=== PATIENT | male | born 2000 | race Caucasian/White ===

== ENCOUNTER 2022-08-20 00:01 | Emergency (ER) | payer OTHER, SELFPAY ==
[2022-08-20 00:16] VITALS: BP 126/87; PULSE 70; RESP 16; TEMP 37.4; O2SAT 100
--- NOTE | 2022-08-20 01:55 | ED.ALLEREA ---
HPI - Allergic Reaction General Chief complaint: Allergic Reaction Stated complaint: rash diffuse Time Seen by Provider: 08/20/22 00:48 Source: patient Mode of arrival: ambulatory Limitations: no limitations History of Present Illness HPI narrative: 21-year-old male presents today with complaints of a rash that he noted yesterday. Patient was seen in urgent care this morning and was told that the rash was due to tinea versicolor. Patient. The rash has worsened and he presented here. Patient denies any new soaps, lotions, detergents but is currently on amoxicillin for strep. Patient states about 3 weeks ago he was on penicillin for strep without issue. After thinking about it he did note that the rash is worse about 2 hours after taking the amoxicillin. Related Data Allergies Allergy/AdvReac Type Severity Reaction Status Date / Time No Known Allergies Allergy Verified 08/20/22 00:24 Review of Systems Review of Systems: CONSTITUTIONAL: Denies fever, chills, or sweats. EYES: Denies visual changes, redness, or discharge. ENT: Denies rhinorrhea, congestion, sore throat, or otalgia. CARDIOVASCULAR: Denies chest pain, palpitations, or edema. RESPIRATORY: Denies cough or dyspnea. GASTROINTESTINAL: Denies abdominal pain, nausea, vomiting, or diarrhea. GENITOURINARY: Denies dysuria or hematuria. SKIN: Rash. Denies itching. Exam Narrative: GENERAL: Well-appearing, well-nourished, and in no acute distress. HEAD: Normocephalic, atraumatic. EYES: PERRLA and EOMI. ENT: Nares clear, no rhinorrhea or epistaxis. Mucous membranes moist. Oropharynx without tonsillar hypertrophy exudate or other lesions. NECK: Supple. No adenopathy or masses. No carotid bruits or JVD CHEST: Clear to auscultation. No respiratory distress. No wheezes rales or rhonchi HEART: Regular rate and rhythm. No murmur heard. Normal peripheral pulses. ABDOMEN: Soft, nontender, nondistended, normal active bowel sounds. EXTREMITIES: Normal range of motion. No edema. SKIN: Warm, dry. Macular rash noted to 8 to entire body. Pruritic. NEURO: No focal deficits. Alert and oriented x3. PSYCH: Normal mood and affect. Course Reevaluation(s) Reevaluation #1: Patient with improvement with itching. Rash to wrist appears less red. Date: 08/20/22 Time: 03:30 Vital Signs Vital signs: Vital Signs Temperature 99.3 F 08/20/22 00:16 Pulse Rate 70 08/20/22 00:16 Respiratory Rate 16 08/20/22 00:16 Blood Pressure 126/87 08/20/22 00:16 Pulse Oximetry 100 08/20/22 00:16 Oxygen Delivery Room Air 08/20/22 00:16 Temperature 99.3 F 08/20/22 00:16 Pulse Rate 70 08/20/22 00:16 Respiratory Rate 16 08/20/22 00:16 Blood Pressure 126/87 08/20/22 00:16 Pulse Oximetry 100 08/20/22 00:16 Oxygen Delivery Room Air 08/20/22 00:16 MDM - Allergic Reaction MDM Narrative Medical decision making narrative: [id number] male HPI as noted. Differentials noted below. Patient recently on penicillin without any issue and has been put on amoxicillin. Patient is on day 8-09/16 of amoxicillin and noted a rash yesterday. After thinking about it rash noted to be worse about 2 hours after amoxicillin dose yesterday and today. Improvement noted after medications. Will discharge home. Patient instructed to stop amoxicillin. He has a follow-up appointment on Friday with primary. Differential Diagnosis Differential diagnosis: Likely allergic reaction, contact dermatitis, adverse reaction to drug, viral enanthem and urticaria Discharge Plan Discharge Clinical Impression: Allergic reaction Patient Disposition: Home, Self-Care Condition: Improved Instructions: Antibiotic Form, Acute Rash (ED), General Allergic Reaction (ED) Additional Instructions: Stop the amoxicillin. Take prescriptions as prescribed. Keep your follow-up appointment with your primary Friday. Return with any new or worsening concerns as discussed including shortness
[2022-08-20] MEDS: FAMOTIDINE 20 MG TABLET PO (02:06)
[2022-08-20] MEDS: methylPREDNISolone ACETATE 80 MG/ML VIAL IM (02:14)
[2022-08-20] MEDS: LORATADINE 10 MG TABLET PO (02:18)
[2022-08-20 03:56] VITALS: BP 124/76; PULSE 74; RESP 16; O2SAT 100
== END 2022-08-20 03:37 | disposition home or self-care (01) ==
PROVIDERS: Emergency Provider Nurse Practitioner Family; PCP Family Medicine
DX: T78.40XA Allergy, unspecified, initial encounter (principal)
CPT/HCPCS: 96372; 99283; A9270; J1030; J1040; J2920

== ENCOUNTER 2023-02-09 18:23 | Emergency (ER) | payer OTHER, SELFPAY ==
--- NOTE | ~2023-02-09 | XR_ITS ---
EXAMINATION: XR chest 2V DATE: 02/09/2023 19:01 INDICATION: Shortness of breath TECHNIQUE: PA and lateral views of the chest were obtained. COMPARISON: None FINDINGS: The lungs are clear with no focal airspace opacities, pulmonary edema, pleural effusion or pneumothor ax. The pleural contour at the apices suggests possibility of apical bulla. The cardiomediastinal dejuan houette is normal. Mild pectus excavatum. IMPRESSION: 1. No acute cardiopulmonary disease. Reviewed, dictated and finalized at location A.
[2023-02-09 18:33] VITALS: BP 152/80; PULSE 64; RESP 20; TEMP 36.6; O2SAT 100
--- NOTE | 2023-02-09 18:58 | ED.GENADULT ---
HPI - General Adult General Chief complaint: Unspecified Stated complaint: fatigue Time Seen by Provider: 02/09/23 18:37 History of Present Illness HPI narrative: 22-year-old male here for evaluation of fatigue. Patient states that he has felt fatigued while he is at work. He is feeling sick with upper respiratory infectious symptoms 2 weeks ago including cough, congestion, nasal drainage. The cough has lingered but the other symptoms have improved. Reports some periods where he feels he is gasping for air . Patient denies any fevers, nausea, vomiting, abdominal pain, chest pain, sore throat. No sick contacts. He did take a COVID test at home that was negative when he started to feel unwell. He was referred from an urgent care for labs. Related Data Allergies Allergy/AdvReac Type Severity Reaction Status Date / Time No Known Allergies Allergy Verified 08/20/22 00:24 Review of Systems Review of Systems: Gen.: Denies fevers or chills Eyes: Denies eye pain or visual change ENT: Denies congestion Respiratory: Denies shortness of breath or cough CV: Denies chest pain or palpitations GI: Denies abdominal pain nausea, emesis or diarrhea denies burning, urgency, frequency or hematuria Musculoskeletal: Denies back pain or muscle pain Neuro: Denies numbness, tingling, weakness or focal weakness Skin: Denies rash Except as documented, all other systems reviewed and negative Exam Narrative: APPEARANCE: Well appearing, no pain in distress, well-nourished. Head: Normocephalic and atraumatic. EYES: PERRLA/EOMI, conjunctivae clear NOSE: No nasal drainage EARS: External ear normal in appearance THROAT: Oropharynx is clear. Mucous membranes are moist. NECK: Supple. No adenopathy, no masses. RESPIRATORY: Airway patent, respirations nonlabored. Clear to auscultation bilaterally, no rales, rhonchi, wheezing. CARDIOVASCULAR: Regular rate and rhythm without murmurs, rubs, or gallops. ABDOMINAL: Normoactive bowel sounds. Soft, nontender, nondistended. No rebound tenderness or guarding. MUSCULOSKELETAL: Extremities are warm and well-perfused. Moves all extremities well. No edema. NEURO: Normal speech. No focal neurologic deficits. SKIN: Skin is warm and dry. No rashes. PSYCHIATRIC: Normal affect/mood. Course Vital Signs Vital signs: Vital Signs Temperature 97.8 F 02/09/23 18:33 Pulse Rate 64 02/09/23 18:33 Respiratory Rate 20 02/09/23 18:33 Blood Pressure 152/80 H 02/09/23 18:33 Pulse Oximetry 100 02/09/23 18:33 Oxygen Delivery Room Air 02/09/23 18:33 Temperature 97.8 F 02/09/23 18:33 Pulse Rate 62 02/09/23 20:23 Respiratory Rate 16 02/09/23 20:23 Blood Pressure 133/89 02/09/23 20:23 Pulse Oximetry 100 02/09/23 20:23 Oxygen Delivery Room Air 02/09/23 18:33 Medical Decision Making MDM Narrative Medical decision making narrative: 22-year-old male here for evaluation of fatigue after several days of upper respiratory infectious symptoms last week. He is nontoxic appearance and has normal vital signs, clear breath sounds throughout. Basic labs are unremarkable, chest x-ray is clear, viral swabs are negative. Likely postviral syndrome. No chest pain or fevers to suggest myocarditis. Will send home with PMD follow-up. Vital Signs Vital Signs: Vital Signs Temperature 97.8 F 02/09/23 18:33 Pulse Rate 64 02/09/23 18:33 Respiratory Rate 20 02/09/23 18:33 Blood Pressure 152/80 H 02/09/23 18:33 Pulse Oximetry 100 02/09/23 18:33 Oxygen Delivery Room Air 02/09/23 18:33 Temperature 97.8 F 02/09/23 18:33 Pulse Rate 62 02/09/23 20:23 Respiratory Rate 16 02/09/23 20:23 Blood Pressure 133/89 02/09/23 20:23 Pulse Oximetry 100 02/09/23 20:23 Oxygen Delivery Room Air 02/09/23 18:33 Lab Data 02/09/23 19:23 02/09/23 19:23 Labs: Lab Results 02/09/23 Range/Units 19:23 WBC 6.8 (4.5-10.0) K/mm3
--- NOTE | 2023-02-09 18:59 | PC.NURSE ---
Patient off unit to radiology.
--- NOTE | 2023-02-09 19:08 | PC.NURSE ---
Patient report given to JALYN Hawkins. All questions answered and care of patient transferred.
[2023-02-09 19:30] LABS: Basophils Absolute Auto 0.1 K/mm3 (0.0-0.1); Basophils Percent Auto 0.9 % (0.2-1.2); Eosinophils Absolute Auto 0.1 K/mm3 (0-0.3); Eosinophils Percent Auto 1.2 % (0-4.4); Hematocrit 44.5 % (42.0-52.0); Hemoglobin 15.3 g/dL (14.0-18.0); Immature Granulocyte Absolute 0.02 K/mm3 (0.00-0.031); Immature Granulocyte Percent A 0.3 % (0-0.5); Lymphocytes Absolute Auto 1.89 K/mm3 (0.9-3.2); Lymphocytes Percent Auto 27.8 % (18.3-44.2); Mean Corpuscular HGB Conc 34.4 g/dl (32-36); Mean Corpuscular Hemoglobin 31.4 pg (26-34); Mean Corpuscular Volume 91.4 fl (80-100); Mean Platelet Volume 9.9 fl (7.4-10.4); Monocytes Absolute Auto 0.5 K/mm3 (0.1-0.6); Monocytes Percent Auto 7.6 % (2.6-8.5); Neutrophils Absolute Auto 4.2 K/mm3 (1.3-6.7); Neutrophils Percent Auto 62.2 % (45.5-73.1); Platelet Count Result 214 k/mm3 (150-375); Red Blood Count 4.87 M/mm3 (4.6-6.20); Red Cell Distribution Width 11.9 % (11.5-14.5); White Blood Count 6.8 K/mm3 (4.5-10.0)
[2023-02-09 19:37] LABS: Alanine Aminotransferase 21 U/L (6-50); Albumin Level 4.7 g/dL (3.5-5.1); Alkaline Phosphatase 101 U/L (38-126); Anion Gap 7 mmol/L (8-16); Aspartate Amino Transferase 27 U/L (17-59); Bilirubin,Total 0.5 mg/dL (0.2-1.3); Blood Urea Nitrogen 14 mg/dL (9-20); Calcium 8.9 mg/dL (8.4-10.2); Carbon Dioxide 29 mmol/L (22-30); Chloride 101 mmol/L (98-107); Estimated CRCL calculation 112 ml/min; Estimated Glomerular Filt Rate > 60; Glucose 99 mg/dL (65-110); Sodium 137 mmol/L (137-145)
[2023-02-09 20:04] LABS: Influenza A QL RT-PCR Negative (Negative); Influenza B QL RT-PCR Negative (Negative); SARS-CoV-2 RNA PCR Negative (Negative)
[2023-02-09 20:10] LABS: Monoscreen Negative (Negative); Negative Monotest Control Negative (Negative); Positive Monotest Control Positive (Positive)
[2023-02-09 20:23] VITALS: BP 133/89; PULSE 62; RESP 16; O2SAT 100
== END 2023-02-09 20:25 | disposition home or self-care (01) ==
PROVIDERS: Emergency Provider Physician Assistant; PCP Family Medicine
DX: G93.31 Postviral fatigue syndrome (principal)
CPT/HCPCS: 36415; 71046; 80053; 85025; 86308; 87636; 99283